=== PATIENT | male | born 1945 | race Caucasian/White ===

== ENCOUNTER 2016-09-25 15:23 | Inpatient (IN) | payer MEDICARE ==
[~2016-09-25] VITALS: Ht 177.8 cm; Wt 104.0 kg
--- NOTE | ~2016-09-25 | CO ---
ADMIT: 09/25/2016 RM/LOC: 629 [facility] MR#: [id number] [address] [address] HANG FRANCES [address] [place] [address] Consultation SEX: M AGE: 70 : 1945 DATE OF CONSULTATION: 09/26/2016 ATTENDING PHYSICIAN: Jean-Paul Carlos CONSULTING PHYSICIAN: Ra Carey MD ADDENDUM: CHIEF COMPLAINT: Epigastric pain. HISTORY OF PRESENT ILLNESS: This is a pleasant 70-year-old male patient of Dr. Carlos. He was admitted early this morning with complaints of severe epigastric pain that came on suddenly. He now feels much better. He did have some studies done and ultrasound, which showed no obvious gallstones, but there did appear to be some focal wall thickening. He then had a HIDA scan done today, which shows delay of filling of the gallbladder, although after giving morphine, some contrast did get into the gallbladder. He did have elevated LFTs also on admission. His AST was 288, ALT of 176. His total bilirubin was also high at 2.6. On exam, his abdomen is obese, it is soft, it is nondistended, nontender at this time. He has had a previous open appendectomy as a 9-year-old, and then a previous open umbilical hernia repair also. ASSESSMENT: Elevated LFTs, evidence of thickening of his gallbladder wall on ultrasound, and very slow filling of the gallbladder on HIDA scan. PLAN: I have recommended proceeding with laparoscopic cholecystectomy with cholangiogram. I have gone through risks and benefits of this procedure in depth with the patient. He does understand all of these and agrees to proceed. Ra Carey MD/ willian JOB #: [id number] CC: Jean-Paul Carlos, Attending Physician Jean-Paul Carlos, Family Physician
--- NOTE | ~2016-09-25 | FD ---
ADMIT: 09/25/2016 RM/LOC: 629 [facility] MR#: [id number] [address] [address] KARIMEHANG CASAS Jovanna [address] [place] [address] Final Diagnosis SEX: M AGE: 70 : 1945 ADMISSION DATE: 09/25/2016 DISCHARGE DATE: 09/27/2016 REASON FOR HOSPITALIZATION: Epigastric abdominal pain, elevated liver enzymes, and hematuria. FINAL DIAGNOSIS: Elevated liver enzymes with epigastric abdominal pain presumed passage of bile duct stone and hematuria with history of renal calculi. Jean-Paul Carlos DO/ willian JOB #: [id number] CC: Jean-Paul Carlos DO, Attending Physician Jean-Paul Carlos DO, Family Physician
[~2016-09-25 15:23] MED LIST: ASPIR 8181 MG PO; COLACE100 MG PO; COZAAR100 MG PO; FLOMAX0.4 MG PO; HYDROCODONE 5MG/5 MG PO; NAPROSYN DPS250 MG PO; OCCUVITE PO
--- NOTE | 2016-09-27 02:34 | ER ---
ADMIT: 09/25/2016 RM/LOC: 629 [facility] MR#: [id number] [address] [address] HANG FRANCES [address] [place] [address] Emergency Room Report SEX: M AGE: 70 : 1945 DATE: 09/25/2016 TIME: 1523 hours. Please refer to my T-sheet for complete H and P. Briefly, the patient is a 70-year-old, who comes in with abdominal pain, started at 11:00 a.m. He has been a little short of breath. It does not radiate to the epigastric. He has never had pain like this before. It came on all of a sudden, and he had eaten breakfast. PHYSICAL EXAMINATION: VITAL SIGNS: Blood pressure I207/109, pulse 60, respirations 13, temperature 95.7, and sat 98%. GENERAL: Mild distress. HEENT: Grossly normal. LUNGS: Clear. HEART: Regular. ABDOMEN: Tender in the epigastric. No rebound or guarding in the right upper quadrant. EMERGENCY DEPARTMENT COURSE: We gave him 500 mL normal saline bolus, Zofran 4 IV, Protonix 40 IV, and Maalox. He is feeling much better. We will give him morphine as needed. CBC came back normal except platelets 149. Chemistries normal except glucose 103, AST 288, ALT 176, total bilirubin was 2.6. His lipase is normal. Troponin was negative. Ultrasound revealed gallbladder, slight increased common bile duct. Thickened wall in one area, but no evidence of cholecystitis otherwise. I talked to Dr. Carlos, we will admit to the hospital. ASSESSMENT: 1. Abdominal pain. 2. Increased liver function tests. 3. Gallbladder sludge and increased common bile duct. PLAN: Admit to the hospital and maybe get a HIDA scan tomorrow. Further evaluation with a surgical consult Junior Avila MD/ willian JOB #: [id number] CC: Jean-Paul Carols DO, Attending Physician Jean-Paul Carlos DO, Family Physician
[2016-09-27] MEDS ORDERED: COZAAR100 MG PO (17:50)
[2016-09-27] MEDS ORDERED: FLOMAX DPS0.4 MG PO (17:50)
[2016-09-27] MEDS ORDERED: ASPIRIN EC81 MG PO (17:51)
[2016-09-27] MEDS ORDERED: METOPROLOL SUCC50 MG PO (17:51)
[2016-09-27] MEDS ORDERED: METOPROLOL SUCC25 MG PO (17:51)
--- NOTE | 2016-10-15 07:06 | CO ---
ADMIT: 09/25/2016 RM/LOC: [address] [facility] MR#: [id number] [address] [address] HANG FRANCES [address] [place] [address] Consultation SEX: M AGE: 70 : 1945 DATE OF CONSULTATION: 09/26/2016 ATTENDING PHYSICIAN: Jean-Paul Carlos CONSULTING PHYSICIAN: Ra Carey MD REASON FOR CONSULTATION: Abdominal pain. HISTORY OF PRESENT ILLNESS: Hang is a very pleasant 70-year-old male, who developed sudden onset of abdominal pain yesterday at about 11 a.m. This is 2 hours after he had a meal, but he is unsure if this has any correlation with it. His pain is located in the epigastric region. He denies any nausea, vomiting, dark or bloody stools. He did however have one loose stool a couple hours after his pain onset. Also, the patient has noticed blood in his urine last night. He does have a history of kidney stones. He denies any fevers, chills, or night sweats. PAST MEDICAL HISTORY: Significant for; 1. Hypertension. 2. BPH. 3. Osteoarthritis. 4. Nephrolithiasis. PAST SURGICAL HISTORY: 1. Open umbilical hernia repair. 2. Right shoulder and right knee surgeries. 3. Appendectomy. ALLERGIES: NO KNOWN DRUG ALLERGIES. MEDICATIONS: Well documented in chart. FAMILY HISTORY: Noncontributory. SOCIAL HISTORY: The patient is an alcohol user, drinks approximately two drinks at night. Denies tobacco or illicit drug use. REVIEW OF SYSTEMS: CONSTITUTIONAL: The patient states some sweats going on for the last couple years, but denies any fevers or chills. HEAD: The patient endorses a headache that started this morning, but has resolved. Denies any dizziness, lightheadedness, or near syncopal episodes. The rest of comprehensive 10-point review of systems was performed and all other systems are negative. PHYSICAL EXAMINATION: GENERAL: The patient is in no acute distress. He is alert and oriented. HEENT: Head is normocephalic and atraumatic. EOMS are intact. Conjunctivae free of icterus, erythema, or pallor. Pinnae, free of deformities. Nose, midline. No tracheal deviation. ADMIT: 09/25/2016 RM/LOC: [address] [facility] MR#: [id number] [address] [address] HANG FRANCES [address] [place] [address] Consultation SEX: M AGE: 70 : 1945 NECK: Supple. SKIN: Negative for jaundice, clubbing, edema, pallor, or cyanosis. LUNGS: Normal respiratory effort. HEART: Distal pulses intact. Regular rate and rhythm. ABDOMEN: Soft, nondistended. Negative Batista's sign. Some mild tenderness on the right flank. NEURO: Grossly intact. LABORATORY DATA: White blood cell count within normal limits. AST, ALT, total bilirubin elevated. Alkaline phosphatase within normal limits. DIAGNOSTIC IMAGING: Abdominal ultrasound revealed a gallbladder without any gallstones with one focal point of gallbladder wall thickening, some minimal sludge, but no pericholecystic fluid. Common bile duct was enlarged at 16.1 mm. ASSESSMENT: 1. Abdominal pain. 2. Hematuria. 3. Elevated LFTs. PLAN: So far the patient had a HIDA, which revealed delayed filling of the gallbladder after 1 hour. Filling was accomplished with IV morphine. There is a chance that there is some chronic gallbladder issues with the patient which we could happily reevaluate in the clinic, however, it does not seem like right now we need to remove his gallbladder. The patient is currently getting worked up for nephrolithiasis given his he hematuria symptoms. We will check his enzymes and correlate our clinical progress from there. Thanks for the consultation of this patient. MULU Iriwn / Ra Carey MD / willian JOB #: [id number] CC: Jean-Paul Carlos, Attending Physician Jean-Paul Carlos, Family Physician
--- NOTE | 2016-10-15 07:06 | OR ---
ADMIT: 09/25/2016 RM/LOC: 629 [facility] [id number] [id number] [address] [address] HANG FRANCES [address] [place] [address] Operative/Delivery Room Report SEX: M AGE: 70 : 1945 SURGERY DATE: 09/27/2016 SURGEON: Ra Carey MD PREOPERATIVE DIAGNOSIS: Acute cholecystitis. POSTOPERATIVE DIAGNOSIS: Acute cholecystitis with possible distal common bile duct stone. PROCEDURE PERFORMED: 1. Laparoscopic cholecystectomy with intraoperative cholangiogram. 2. Laparoscopic common bile duct exploration. ANESTHESIA: General endotracheal with addition of Marcaine in the wounds postprocedure. COURTROOM DEPUTY: MULU Irwin DESCRIPTION OF PROCEDURE: After appropriate informed consent was obtained, the patient was brought to the operating room. General endotracheal anesthesia was induced. The patient's abdomen was prepped and draped in a sterile fashion. A small subxiphoid incision was created, bluntly I was able to dissect down to the fascia and placed a curved hemostat in the abdomen, and then bluntly placed an 11 mm trocar. The abdomen was insufflated with CO2. Camera was introduced. The abdomen was surveyed. He had no intraabdominal adhesions. I could see where he had his previous umbilical hernia repair, so I went above that. I made a small incision and placed a 5 mm port. The camera was then repositioned down to the umbilical port site. Two additional 5 mm ports were placed in the right upper quadrant. The gallbladder was grasped, retracted up over the edge of the liver. It has a very edematous and swollen, and lot of fat stuck down around the infundibulum, this was peeled away. The infundibulum was retracted laterally revealing a very dilated cystic duct and common duct system. The cystic duct was skeletonized out. Two separate branches of the cystic artery were identified, clipped, and divided. A single clip placed on the cystic duct on the gallbladder side. A small ductotomy was made. Cholangiogram catheter was introduced and intraoperative cholangiogram was obtained. This revealed a very dilated ductal system. I took a lot of contrast just to fill the duct. I did get some contrast going into the duodenum, but then it seemed to stop flowing into the duodenum and really could not tell if there was an obstruction or what was going on distally. So, I tried to flush out the duct with saline and that really did not even flush out all the contrast, so I reinstilled more contrast and even still I was not entirely confident we were getting all the contrast to go through into the duodenum, so I elected to do a common bile duct exploration. A choledochoscope was introduced through one of my port sites down through the cystic duct opening and easily advanced down through the ductal system to the distal duct. There did not appear to be any stone in the distal duct. I could see the ampulla easily, I was able to pass part way through the ampulla, but never was able to get all the way into the duodenum ADMIT: 09/25/2016 RM/LOC: 629 [facility] MR#: [id number] [address] [place] [id number] HANG FRANCES [facility] [place] [address] Operative/Delivery Room Report SEX: M AGE: 70 : 1945 with the scope, but I did not see any stone fragments or sludge though saline through the scope was flushing through nicely down the duct through the ampulla. So, the choledochoscope was removed. Three clips placed on cystic duct on the patient's side. The duct was cut between clips. The gallbladder was then reflected off liver bed using hook electrocautery. With the gallbladder freed up, it was placed in EndoCatch bag and brought out through the subxiphoid port site. The port was reintroduced and the right upper quadrant was copiously irrigated and suctioned out. Everything appeared hemostatic. All the wounds were infiltrated with Marcaine. The subxiphoid fascial defect was closed with [id number] 0 Vicryl suture. The abdomen was next desufflated, ports removed, skin closed with 4-0 Monocryl in the subcuticular layer. Sterile dressings were applied. Dany Kumar assisted in this entire procedure. His help was necessary for retraction and camera driving. Ra Carey MD/ willian JOB #: [id number] CC: Jean-Paul Carlos, Attending Physician Jean-Paul Carlos, Family Physician Jean-Paul Carlos, DO
--- NOTE | 2016-11-06 08:09 | HP ---
ADMIT: 09/25/2016 RM/LOC: [address] [place] [address] MR#: [id number] [address] [place], [place] [id number] HANG FRANCES [address] [place] [address] History and Physical SEX: M AGE: 70 : 1945 CORRECTED: 10/28/2016 1159 [facility] DATE OF SERVICE: REASON FOR HOSPITALIZATION: Abdominal pain. HISTORY OF PRESENT ILLNESS: The patient came to the emergency room with abdominal pain and some shortness of breath, which did not radiate. He reports never having previous pain of this nature and this discomfort came on immediately after eating his breakfast. In the emergency room, Dr. Avila evaluated him and found him to be tender in the epigastrium. His ultrasound of his gallbladder suggested increased common bile duct dimension, but no other evidence of cholecystitis. We decided to admit him for observation and further investigation. He was found to have an elevated AST and ALT, and gross hematuria. PAST MEDICAL HISTORY: He does have a past medical history of nephrolithiasis as well as hypertension and BPH. FAMILY HISTORY: Noncontributory. SOCIAL HISTORY: He is and retired. REVIEW OF SYSTEMS: Abdominal discomfort, gross hematuria. No current nausea, vomiting, diarrhea, or obvious bleeding. No chest pain, palpitations, shortness of breath, or edema. PHYSICAL EXAMINATION: VITAL SIGNS: Blood pressure 148/80. GENERAL: Pleasant, alert. LUNGS: Clear. ADMIT: 09/25/2016 RM/LOC: 9 [facility] MR#: [id number] [address] [place], [place] [id number] HANG FRANCES [address] [place] [address] History and Physical SEX: M AGE: 70 : 1945 HEART: Regular. ABDOMEN: Tender epigastrium. EXTREMITIES: No edema. IMPRESSION: Suspicious for acute gallbladder with possible passed common bile duct stone versus nephrolithiasis. PLAN: He is admitted, will be n.p.o., perform HIDA scan, provide him pain relievers, and consider renal colic scan if gallbladder evaluation is otherwise unremarkable. Jean-Paul Carlos DO/ willian JOB #: [id number] CC: Jean-Paul Carlos DO, Attending Physician Jean-Paul Carlos DO, Family Physician CORRECTED: 10/28/2016 1159 [facility]
== END 2016-09-27 14:00 | disposition home or self-care (01) | DRG 413 ==
LOC: ER 15:23 → 6PED 18:20
PROVIDERS: ADMIT Internal Medicine
PROC: 0FT44ZZ Resection of Gallbladder, Percutaneous Endoscopic Approach (ICD-10-PCS; principal; 2016-09-27)
PROC: BF101ZZ Fluoroscopy of Bile Ducts using Low Osmolar Contrast (ICD-10-PCS; principal; 2016-09-27)
PROC: 0FJB4ZZ Inspection of Hepatobiliary Duct, Percutaneous Endoscopic Approach (ICD-10-PCS; principal; 2016-09-27)
DX: K80.42 Calculus of bile duct with acute cholecystitis without obstruction (principal); R31.0 Gross hematuria; I10 Essential (primary) hypertension; K83.8 Other specified diseases of biliary tract; N40.0 Benign prostatic hyperplasia without lower urinary tract symptoms; M19.90 Unspecified osteoarthritis, unspecified site; E66.9 Obesity, unspecified; K21.9 Gastro-esophageal reflux disease without esophagitis; Z87.442 Personal history of urinary calculi; Z68.32 Body mass index [BMI] 32.0-32.9, adult

== ENCOUNTER → 2016-10-04 | Outpatient (CLI) | payer MEDICARE ==
[~2016-10-04] MED LIST changes: +ASPIRIN EC81 MG PO; +FLOMAX DPS0.4 MG PO; +METOPROLOL SUCC25 MG PO; +METOPROLOL SUCC50 MG PO
== END | disposition home or self-care (01) ==
LOC: PTH.S 09-27 14:15
DX: Z01.812 Encounter for preprocedural laboratory examination (principal)